=== PATIENT | female | born 1995 | race Caucasian/White ===

== ENCOUNTER 2016-11-23 23:00 | Emergency (ER) | payer OTHER ==
[2016-11-23] MEDS ORDERED: ONDANSETRON 4 MG/2 ML VIAL ONE (23:13)
[2016-11-23] MEDS ORDERED: HYDROmorphONE/DILAUDID 1 MG/ML SYR IVP ONE (23:21)
[2016-11-23] MEDS ORDERED: ONDANSETRON 4 MG/2 ML VIAL IVP ONE (23:21)
[2016-11-23] MEDS ORDERED: NS 500 ML IV ONE (23:31)
[2016-11-24] MEDS ORDERED: HYDROmorphONE/DILAUDID 1 MG/ML SYR IVP ONE ×3 (00:06→01:28)
[2016-11-24] MEDS ORDERED: KETOROLAC 30 MG/1 ML SDV IVP ONE (00:06)
--- NOTE | 2016-11-24 00:06 | EDPHY ---
HPI/HX/ROS/PE/MDM Narrative: Chief complaint: Pelvic pain HPI: Patient is presenting with worsening pelvic pain since this afternoon. Patient states that about 3 o'clock this afternoon she [facility] Since that time she has had worsening crampy low pelvic pain. Did have mild spotting having passed 1 blood clot. Took some ibuprofen, last at 7 o'clock without relief. No nausea or vomiting. No diarrhea. No fevers or chills. Does not have similar symptoms in the past. States that feels like a very severe menstrual cramp. ROS: 10 point Review of Systems is negative except as noted in the HPI. Physical exam: Gen: Awake, Alert, No Distress HEENT: Ears: Bilateral TMs are normal, no erythema or bulging. External auditory canals are clear. Nose: no rhinorrhea Eyes: PERRLA, EOMI Mouth: Moist mucosa Neck: Supple, no JVD Chest: nontender, lungs clear to auscultation Heart: S1, S2 normal, no murmur Abd: Soft, non-tender, suprapubic tenderness with guarding Back: no CVA tenderness, no midline tenderness Ext: no edema, non-tender Skin: no rash Neuro: CN II-XII intact, Sensation grossly intact, Strength 5/5 in bilateral upper and lower extremities ED Course: Pelvic ultrasound interpreted by Dr. Addison. IUD slightly low with lower tip in the LUE S, and upper tip approximately nightly 11 mm from the fundal endometrium. Additionally, the right side arm has not deployed and the left side arm has deployed but is slightly obliqued. I have discussed with KEOYNNA LegerGYRobert. She is suggesting that if on pelvic exam I am able to visualize the strings that I should remove the IUD. Not, the patient should follow up in the clinic tomorrow for IUD removal. Patient then can be arranged to have an IV placed under ultrasound guidance. IUD was removed by me successfully under pelvic exam. On examination the strings were visualized from the cervical os. Using Hugo forceps gentle pressure was applied and the IUD easily slipped through the cervical os. There was no bleeding or complications. Patient will be discharged with follow up with the for follow-up. - Data Points Medications Given: Discontinued Medications Hydromorphone HCl (Dilaudid) 0.5 mg IVP EDNOW ONE Stop: 11/23/16 23:22 Last Admin: 11/23/16 23:32 Dose: 0.5 mg Hydromorphone HCl (Dilaudid) 0.5 mg IVP EDNOW ONE Stop: 11/24/16 00:07 Last Admin: 11/24/16 00:14 Dose: 0.5 mg Hydromorphone HCl (Dilaudid) 1 mg IVP EDNOW ONE Stop: 11/24/16 01:15 Last Admin: 11/24/16 01:18 Dose: 0.5 mg Hydromorphone HCl (Dilaudid) 1 mg IVP EDNOW ONE Stop: 11/24/16 01:29 Last Admin: 11/24/16 01:31 Dose: Not Given Sodium Chloride (Ns) 500 mls @ 0 mls/hr IV EDNOW ONE PRN Reason: Wide Open Stop: 11/23/16 23:32 Last Admin: 11/23/16 23:32 Dose: 500 mls Sodium Chloride (Ns) 1,000 mls @ 0 mls/hr IV ONCE ONE PRN Reason: Wide Open Stop: 11/24/16 01:30 Last Admin: 11/24/16 01:00 Dose: 1,000 mls Ketorolac Tromethamine (Toradol) 30 mg IVP EDNOW ONE Stop: 11/24/16 00:07 Last Admin: 11/24/16 00:15 Dose: 30 mg Ondansetron HCl (Zofran) 4 mg IVP EDNOW ONE Stop: 11/23/16 23:22 Last Admin: 11/23/16 23:32 Dose: 4 mg General Time Seen by Provider: 11/23/16 23:47 Initial Vital Signs: Initial Vital Signs Temperature (C) 36.5 C 11/23/16 23:06 Heart Rate 79 11/23/16 23:06 Respiratory Rate 18 11/23/16 23:06 Blood Pressure 124/83 H 11/23/16 23:06 O2 Sat (%) 98 11/23/16 23:06 O2 Delivery Mode Room Air O2 (L/minute) 2 Allergies/Adverse Reactions: Penicillins Allergy (Verified 11/23/16 23:06) Home Medications: Medication Instructions Recorded Copper 11/23/16 Departure - Departure Disposition: Home, Routine, Self-Care Clinical Impression: IUD complication Condition: Good Instructions: Pelvic Pain (ED) Additional Instructions: Follow up with who can arrange to have an IUD placed under ultrasound guidance in their office. Return for worsening pain, fevers, chills, or any other concerns. Referrals: [facility] [Other] - As per Instructions Kandy Hill DO [Doctor of Osteopathy] - As per Instructions
[2016-11-24] MEDS ORDERED: HYDROmorphONE/DILAUDID 1 MG/ML SYR ONE (00:51)
[2016-11-24] MEDS ORDERED: NS 1,000 ML IV ONE (01:29)
[2016-11-24] MEDS ORDERED: ACETAMINOPHEN 500 MG TAB ONE (02:14)
[2016-11-24] MEDS ORDERED: ACETAMINOPHEN 500 MG TAB PO ONE (02:15)
[2016-11-24] MEDS ORDERED: ONDANSETRON 4MG PREPACK#2 BTL TAKEHOME ONE ×2 (02:39→02:44)
[2016-11-24 02:54] VITALS: RESP 16; O2SAT 96
[2016-11-24 02:55] VITALS: BP 117/67; PULSE 81; TEMP 98.1
== END 2016-11-24 02:55 | disposition home or self-care (01) ==
DX: T83.39XA Other mechanical complication of intrauterine contraceptive device, initial encounter (principal); Y76.2 Prosthetic and other implants, materials and accessory obstetric and gynecological devices associated with adverse incidents
CPT/HCPCS: 96374; J1170; J1885; J2405

== ENCOUNTER 2017-01-15 11:44 | Emergency (ER) | payer OTHER ==
[2017-01-15 11:52] VITALS: BP 116/77; PULSE 72; RESP 15; TEMP 99; O2SAT 97
[2017-01-15] MEDS ORDERED: IBUPROFEN 600 MG TAB PO ONE (12:20)
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
== END 2017-01-15 13:15 | disposition home or self-care (01) ==
LOC: CED 11:44
PROC: 2W3EX1Z Immobilization of Right Hand using Splint (ICD-10-PCS; principal; 2017-01-15)
DX: S62.356A Nondisplaced fracture of shaft of fifth metacarpal bone, right hand, initial encounter for closed fracture (principal); Y93.55 Activity, bike riding; V18.0XXA Pedal cycle driver injured in noncollision transport accident in nontraffic accident, initial encounter
CPT/HCPCS: 73130-PO; 99203-PO; G0463-PO

== ENCOUNTER 2017-09-15 08:55 | Emergency (ER) | payer OTHER ==
[2017-09-15 09:06] VITALS: TEMP 97.8
[2017-09-15] MEDS ORDERED: NS 1,000 ML IV ONE (09:29)
[2017-09-15] MEDS ORDERED: ONDANSETRON 4 MG/2 ML VIAL IVP ONE (09:29)
[2017-09-15 09:45] LABS: % IMMATURE GRANULYOCYTES 0.5 % (0.0-1.1); ABSOLUTE IMMATURE GRANULOCYTES 0.07 10^3/uL (0.00-0.10); ADD DIFF? NO; ADD MORPH? NO; ADD SCAN? NO; ATYPICAL LYMPHOCYTE FLAG 10 (0-99); FRAGMENT RBC FLAG 0 (0-99); HEMATOCRIT 44.5 % (38.0-47.0); HEMOGLOBIN 15.9 g/dL (12.6-16.3); LEFT SHIFT FLG 0 (0-99); LIPEMIA HEMOLYSIS FLAG 90 (0-99); MEAN CELL HEMOGLOBIN 33.8 pg (27.9-34.1); MEAN CELL HEMOGLOBIN CONCENTR. 35.7 g/dL (32.4-36.7); MEAN CELL VOLUME 94.5 fL (81.5-99.8); MEAN PLATELET VOLUME 9.1 fL (8.7-11.7); PLATELET CLUMPS FLAG 0 (0-99); PLATELET COUNT 166 10^3/uL (150-400); RED BLOOD CELL COUNT 4.71 10^6/uL (4.18-5.33); RED CELL DISTRIBUTION WIDTH 11.7 % (11.5-15.2)
[2017-09-15 09:54] LABS: ALANINE AMINOTRANSFERASE 39 IU/L (9-52); ALBUMIN 4.6 g/dL (3.5-5.0); ALKALINE PHOSPHATASE 71 IU/L (38-126); ANION GAP 19 mEq/L (8-16); ASPARTATE AMINOTRANSFERASE 23 IU/L (14-46); BILIRUBIN,TOTAL 0.7 mg/dL (0.1-1.4); BILIRUBIN-CONJUGATED 0.2 mg/dL (0.0-0.5); BILIRUBIN-UNCONJUGATED 0.5 mg/dL (0.0-1.1); CALCIUM 9.6 mg/dL (8.5-10.4); CARBON DIOXIDE 19 mEq/l (22-31); CHLORIDE 105 mEq/L (97-110); CREATININE 0.7 mg/dL (0.6-1.0); GLOMERULAR FILTRATION RATE > 60; GLUCOSE 98 mg/dL (70-100); POTASSIUM 3.6 mEq/L (3.5-5.2); SODIUM 143 mEq/L (134-144); TOTAL PROTEIN 7.8 g/dL (6.3-8.2)
--- NOTE | 2017-09-15 10:07 | EDPHY ---
General Narrative: CHIEF COMPLAINT: Diarrhea, dehydration, cramping HISTORY OF PRESENT ILLNESS: Patient complains of nausea, vomiting, diarrhea, pelvic cramping and vaginal bleeding. She underwent an elective on Monday and Monday with Cytotec. She is approximately 9 and half weeks gestation. She had the expected diarrhea from this for 1-2 days that went away. And then over the past 24 hr she has had significant vomiting and diarrhea. She has had increasing pelvic cramping. She has had vaginal bleeding every time she sits down to have a bowel movement. No fever. No chest pain. No shortness of breath. No headache. She has not yet been evaluated by OB physician following the commencement of the Cytotec. No recent travel or surgery. No other associated complaints or modifying factors REVIEW OF SYSTEMS: Ten systems reviewed and are negative unless otherwise noted in the HPI PCP: Tiffanie Mancilla SPECIALISTS: [facility] PAST MEDICAL HISTORY: None PAST SURGICAL HISTORY: None SOCIAL HISTORY: Nonsmoker. Occasional alcohol. No drug use. Currently student [employer]. Originally from [place] FAMILY HISTORY: Noncontributory EXAMINATION General Appearance: Alert, no distress Head: normocephalic, atraumatic Eyes: Pupils equal and round, no conjunctival pallor or injection ENT, Mouth: Mucous membranes dry. Airway is patent. Neck: Normal inspection, supple, non-tender Respiratory: Lungs are clear to auscultation. No wheezing, rhonchi or crackles Cardiovascular: Tachycardic rate. Regular rhythm. No murmur Gastrointestinal: Abdomen is soft and nondistended. There is tenderness in the lower quadrants and suprapubic region. No guarding. No tympany. No rigidity. No CVA tenderness. Neurological: A&O, nonfocal, strength is symmetric in the limbs. Skin: Warm and dry, no rash no petechiae or purpura Extremities: Nontender, no pedal edema Psychiatric: Mood and affect normal DIFFERENTIAL DIAGNOSES: Including but not limited to retained products of conception, incomplete , dehydration, infectious diarrhea, colitis, enteritis MDM: 9:40 a.m. Nausea, vomiting, diarrhea, cramping and vaginal bleeding. Patient underwent an elective by Cytotec on Monday and Monday. Diarrhea was present but resolved until today. She feels very dehydrated and weak. She has no chest pain or shortness of breath. I have ordered ultrasound of the pelvis to rule out retained products of conceptions. I have ordered laboratory studies, Rh type, IV fluid and Zofran. She is in no acute distress. 10:30 a.m. CBC does not reveal any anemia, rather she is hemoconcentrated. Chemistries unremarkable. HCG quant is 3135, down from 18,300 on August 18 11:30 a.m. Rh positive. Ultrasound pending. She is having some cramps, thus we are trying Toradol. She is in no acute distress. No vomiting. Bowel movement has been obtained and will be sent to laboratory study for GI pathogen panel. 11:50 a.m. Case discussed with radiologist Dr. James. Ultrasound does not reveal any evidence of retained products of conception. 11:55 a.m. Patient re-evaluated. She is starting to feel better after the IV fluid and Toradol. Cramps are manageable. GI pathogen panel is pending. I will consult obstetrics to confirm that her quantitative HCG is at an acceptable level. 12:15 p.m. Case discussed with Ob physician Dr. Breaux. She confirms that the HCG quantitative level is not of concern. Within normal ultrasound she does not recommend following the quantitative level. 12:20 p.m. Patient re-evaluated. She is comfortable going home at this time. I do feel she is stable for discharge. She will be discharged home with nausea medication , pain medication and strict ED precautions. I would like her to return to the emergency department in 24 hr if no improvement. I would like her to return sooner if worsening. Her GI pathogen panel is pending I will call her with results when they are available. [facility] 4:00 p.m. This is an addendum. The patient had been discharged home when her gastro pathogen panel returned. It was positive for norovirus. I have contacted the patient and notified her. I discussed further precautions regarding possible dehydration. Like her to return to the ER tomorrow should she not be able to keep any liquids down for the next 12 hr. I would like her to return sooner should she have any worsening abdominal pain, fever or bloody stools. She voiced her understanding of this. 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 SUPERVISION: Patient was independently examined, but I discussed the case with my secondary supervising physician Dr. Izaguirre - Diagnostics Imaging Results: Imaging Impressions Obstetrics Ultrasound 09/15/17 09:39 Impression: 1. Mild thickening of the endometrial stripe without evidence of internal color flow enhancement to suggest retained products of conception. This could just represent blood products. Continued follow-up suggested. 2. Retroflexed uterus. 3. Normal-appearing ovaries. Findings discussed with Lonnie Fonseca PAC at 11:57 hour, 09/15/2017. - History Smoking Status: Never smoked - Objective Vital Signs: Initial Vital Signs Temperature (C) 97.8 F 09/15/17 08:56 Heart Rate 110 H 09/15/17 08:56 Respiratory Rate 15 09/15/17 08:56 Blood Pressure 102/73 09/15/17 08:56 O2 Sat (%) 99 09/15/17 08:56 O2 Delivery Mode Room Air Allergies/Adverse Reactions: Penicillins Allergy (Verified 11/23/16 23:06) Home Medications: Medication Instructions Recorded Hydrocodone/APAP 5/325 [[place] 1 - 2 tab PO Q4H PRN #11 tab 09/15/17 5/325 (*)] Ondansetron Odt [Zofran Odt 4 mg 4 mg PO Q6 PRN #12 tab 09/15/17 (*)] Laboratory Results: Laboratory Results 09/15/17 09:20 09/15/17 09:20 09/15/17 09/15/17 09/15/17 09:20 09:20 09:20 WBC 15.40 10^3/uL H 10^3/uL (3.80-9.50) RBC 4.71 10^6/uL 10^6/uL (4.18-5.33) Hgb 15.9 g/dL g/dL (12.6-16.3) Hct 44.5 % % (38.0-47.0) MCV 94.5 fL fL (81.5-99.8) MCH 33.8 pg pg (27.9-34.1) MCHC 35.7 g/dL g/dL (32.4-36.7) RDW 11.7 % % (11.5-15.2) Plt Count 166 10^3/uL 10^3/uL (150-400) MPV 9.1 fL fL (8.7-11.7) Neut % (Auto) 93.4 % H % (39.3-74.2) Lymph % (Auto) 1.8 % L % (15.0-45.0) Rush % (Auto) 3.8 % L % (4.5-13.0) Eos % (Auto) 0.2 % L % (0.6-7.6) Baso % (Auto) 0.3 % % (0.3-1.7) Nucleat RBC Rel Count 0.0 % % (0.0-0.2) Absolute Neuts (auto) 14.41 10^3/uL H 10^3/uL (1.70-6.50) Absolute Lymphs (auto) 0.27 10^3/uL L 10^3/uL (1.00-3.00) Absolute Monos (auto) 0.58 10^3/uL 10^3/uL (0.30-0.80) Absolute Eos (auto) 0.03 10^3/uL 10^3/uL (0.03-0.40) Absolute Basos (auto) 0.04 10^3/uL 10^3/uL (0.02-0.10) Absolute Nucleated RBC 0.00 10^3/uL 10^3/uL (0-0.01) Immature Gran % 0.5 % % (0.0-1.1) Immature Gran # 0.07 10^3/uL 10^3/uL (0.00-0.10) Sodium 143 mEq/L mEq/L (134-144) Potassium 3.6 mEq/L mEq/L (3.5-5.2) Chloride 105 mEq/L mEq/L (97-110) Carbon Dioxide 19 mEq/l L mEq/l (22-31) Anion Gap 19 mEq/L H mEq/L (8-16) BUN 14 mg/dL mg/dL (7-23) Creatinine 0.7 mg/dL mg/dL (0.6-1.0) Estimated GFR > 60 Glucose 98 mg/dL mg/dL (70-100) Calcium 9.6 mg/dL mg/dL (8.5-10.4) Total Bilirubin 0.7 mg/dL mg/dL (0.1-1.4) Conjugated Bilirubin 0.2 mg/dL mg/dL (0.0-0.5) Unconjugated Bilirubin 0.5 mg/dL mg/dL (0.0-1.1) AST 23 IU/L IU/L (14-46) ALT 39 IU/L IU/L (9-52) Alkaline Phosphatase 71 IU/L IU/L (38-126) Total Protein 7.8 g/dL g/dL (6.3-8.2) Albumin 4.6 g/dL g/dL (3.5-5.0) Lipase 67 IU/L IU/L (23-300) Beta HCG, Quant 3135.60 mIU/mL H mIU/mL (0.00-4.83) Patient ABO/Rh O POSITIVE Microbiology Results: MICROBIOLOGY 09/15/17 11:36 Stool Gastrointestinal Tract Panel (PCR) - Final Norovirus Gi/Gii Medications Given: Discontinued Medications Sodium Chloride (Ns) 1,000 mls @ 0 mls/hr IV ONCE ONE PRN Reason: Wide Open Stop: 09/15/17 09:30 Last Admin: 09/15/17 09:49 Dose: 1,000 mls Ketorolac Tromethamine (Toradol) 30 mg IVP EDNOW ONE Stop: 09/15/17 11:16 Last Admin: 09/15/17 11:20 Dose: 30 mg Ondansetron HCl (Zofran) 4 mg IVP EDNOW ONE Stop: 09/15/17 09:30 Last Admin: 09/15/17 09:50 Dose: 4 mg Departure - Departure Disposition: Home, Routine, Self-Care Clinical Impression: in first trimester, Norovirus Diarrhea Qualifiers: Diarrhea type: unspecified type Qualified Code(s): R19.7 - Diarrhea, unspecified Nausea & vomiting Qualifiers: Vomiting type: unspecified Vomiting Intractability: non-intractable Qualified Code(s): R11.2 - Nausea with vomiting, unspecified Condition: Good Instructions: Dehydration (ED), Acute Diarrhea (ED) Additional Instructions: 1. Increase her fluid intake 2. Clear liquid diet, advancing slowly as tolerated 3. Medications as prescribed as needed 4. ED precautions for worsening pain, fever, vomiting or vaginal bleeding greater than 1 pad per hour 5. Return to emergency department if no improvement of her symptoms in the next 4 hr 6. [facility] [Clinic] - As per Instructions Stand Alone Forms: School Excuse Prescriptions: Hydrocodone/APAP 5/325 [[place] 5/325 (*)] 1 - 2 tab PO Q4H PRN #11 tab PRN Reason: Pain, Moderate Ondansetron Odt [Zofran Odt 4 mg (*)] 4 mg PO Q6 PRN #12 tab PRN Reason: Nausea/Vomiting, Use 1st
[2017-09-15] MEDS ORDERED: KETOROLAC 30 MG/1 ML SDV IVP ONE (11:15)
[2017-09-15 12:35] VITALS: BP 115/85; PULSE 85; RESP 18; O2SAT 96
== END 2017-09-15 12:32 | disposition home or self-care (01) ==
DX: R19.7 Diarrhea, unspecified (principal); R11.2 Nausea with vomiting, unspecified; Z87.59 Personal history of other complications of pregnancy, childbirth and the puerperium
CPT/HCPCS: 96374; J1885; J2405

== ENCOUNTER 2018-05-02 20:31 | Emergency (ER) | payer OTHER ==
--- NOTE | 2018-05-02 20:49 | EDPHY ---
H & P Time Seen by Provider: 05/02/18 20:46 HPI/ROS: HPI: This is a 22-year-old female who presents with Chief Complaint: Pt reports concussion one month ago, continuing SANTIAGO, nausea. Location: Right jewish in front of head Quality: Aching Duration: 1 month Signs and Symptoms: no fever, + nausea, + vomiting, no photophobia, no noise sensitivity, no neck stiffness, no ear pain, no tinnitus, no nasal congestion, no sinus pressure, no weakness, no radiation, no aura Timing: Daily Severity: Mild Context: Patient reports that she was playing [employer] approximately 1 month ago when she took a shoulder to her right jewish and cheek. She denies any loss of consciousness, dizziness, nausea, vomiting, global amnesia at the time. She reports that it hurts to but pain quickly wore off and she continued to play the game. 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 She reports that since that time she has had continuing headaches that are dull and aching in the right jewish in front of her head. Today she felt more nauseous and usual and actually vomited her stomach contents x1. She denies any fever, abdominal pain, urinary symptoms, diarrhea. She is taking Zofran as needed per her primary care provider. Her primary care provider ordered Head CT scan today but for some scheduling conflicts she was unable to obtain so she came to the emergency room to have the head CT scan performed. She denies any visual changes, weakness, radiation. Incidentally she is on day 3 of 7 Macrobid for urinary tract infection Modifying Factors: Zofran Comment: ROS: see HPI Constitutional: No fever, no chills, no weight loss Eyes: No blurred vision Respiratory: No shortness of breath, no cough Cardiovascular: No chest pain, no palpitations Gastrointestinal: + nausea, + vomiting, no diarrhea, no hematemesis, no blood in stool Genitourinary: No dysuria, no blood in urine Extremities: No myalgias, no edema Neurologic: No weakness, no numbness Skin: No rashes, no petechiae Hematologic: No bruising, no bleeding MEDICAL/SURGICAL/SOCIAL HISTORY: Medical history: Generally healthy. Does not take any regular medications. Surgical history: Denies Social history: Employed. Family history noncontributory. CONSTITUTIONAL: Extremely well-appearing young adult white female, significant other at bedside, awake and alert, no obvious distress HEENT: Atraumatic and normocephalic, PERRL, EOMI. Nares patent; no rhinorrhea; no nasal mucosal edema. Tympanic membranes clear. Oropharynx clear, no exudate and moist pink mucosa. Airway patent. No lymphadenopathy. No meningismus. Cardiovascular: Normal S1/S2, regular rate, regular rhythm, without murmur rub or gallop. PULMONARY/CHEST: Symmetrical and nontender. Clear to auscultation bilaterally. Good air movement. No accessory muscle usage. ABDOMEN: Soft, nondistended, nontender, no rebound, no guarding, no peritoneal signs, no masses or organomegaly. No CVAT. EXTREMITIES: 2/2 pulses, strength 5/5, no deformities, no clubbing, no cyanosis or edema. NEUROLOGICAL: no focal neuro deficits. GCS 15. Cranial nerves 2-12 grossly intact. Normal [id number] test. Normal [id number] test. Normal cerebellar testing. Speech is normal. SKIN: Warm and dry, no erythema. no rash. Good capillary refill. Source: Patient Exam Limitations: No limitations - Personal History LMP (Females 10-55): 15-21 Days Ago Current Tetanus/Diphtheria Vaccine: Yes Current Tetanus Diphtheria and Acellular Pertussis (TDAP): Yes - Medical/Surgical History Hx Asthma: No Hx Chronic Respiratory Disease: No Hx Diabetes: No Hx Cardiac Disease: No Hx Renal Disease: No Hx Cirrhosis: No Hx Alcoholism: No Hx HIV/AIDS: No Hx Splenectomy or Spleen Trauma: No Other PMH: denies - Social History Smoking Status: Never smoked Constitutional: Initial Vital Signs Temperature (C) 36.9 C 05/02/18 20:34 Heart Rate 60 05/02/18 20:34 Respiratory Rate 16 05/02/18 20:34 Blood Pressure 98/59 L 05/02/18 20:34 O2 Sat (%) 98 05/02/18 20:34 O2 Delivery Mode Room Air Allergies/Adverse Reactions: Penicillins Allergy (Verified 11/23/16 23:06) Home Medications: Medication Instructions Recorded Ondansetron Odt [Zofran Odt 4 mg 4 mg PO Q6 PRN #12 tab 09/15/17 (*)] Codeine/Butalbital/ASA/Caffein 1 - 2 each PO Q6 PRN #12 capsule 05/02/18 [Fiorinal with Codeine #3 Cap] Macrobid 05/02/18 Ondansetron Odt [Zofran Odt 4 mg 4 mg PO Q4 PRN #12 tab 05/02/18 (*)] Medical Decision Making - Diagnostics Imaging Results: Imaging Impressions Head CT 05/02/18 20:46 Impression: Negative noncontrast CT of the head with no intracranial posttraumatic sequela identified. Results called and discussed with Olinda GONZALEZ on 05/02/2018 at 21:17. ED Course/Re-evaluation: Vital signs reviewed and stable upon arrival. Will order head CT scan based on patient's request and PCP ordered. No LOC. No neurological deficits. I suspect that patient has postconcussion syndrome and would benefit from referral to the concussion Clinic with Dr. Dinh or Neurology. 2128: Called by Radiology who advised that his CT scan shows no acute intracranial process Patient would like a referral to primary care provider. I have also provided her with referral to the concussion Clinic and Neurology. Patient reports she only has 4 tabs of Zofran left and I have given her another prescription for this as well as Fioricet. This patient was seen under the supervision of my secondary supervising physician. I evaluated care for this patient independently. Discussed this patient with Dr. Merrill. Differential Diagnosis: Head injury including but not limited to concussion, skull fracture, intraparenchymal contusion, subarachnoid, subdural and epidural hematoma. Departure - Departure Disposition: Home, Routine, Self-Care Clinical Impression: Post-concussion headache, Postconcussion syndrome Condition: Good Instructions: Post Concussion Syndrome (ED), Chronic Post Traumatic Headache ( ED) Additional Instructions: You sustained a head injury and need to sustained concussion precautions until all symptoms have resolved. Please limit moderate to strenuous activities and avoid any contact sports until all symptoms have resolved. Please avoid eye strain reading or watching TV for long periods of time. It is beneficial to follow up with Dr. Dinh in the concussion Clinic or Neurology for postconcussion syndrome. Take Zofran 1 tab every 4 hr as needed for nausea, vomiting. Take Fioricet every 6 hr as needed for headache that is not relieved by Tylenol and/or ibuprofen. Return to the ER immediately if you have progressive headaches, neurologic deficits, gait abnormality, visual disturbance, slurred speech, or any other symptom that concerns you. Referrals: DMITRY ESPARZA [Primary Care Provider] - As per Instructions Virgen Dinh MD [Medical Doctor] - As per Instructions Long Nails DO [Medical Doctor] - As per Instructions [facility] [Outside] - As per Instructions Stand Alone Forms: Airline Excuse Prescriptions: Codeine/Butalbital/ASA/Caffein [Fiorinal with Codeine #3 Cap] 1 - 2 each PO Q6 PRN #12 capsule PRN Reason: Headache Ondansetron Odt [Zofran Odt 4 mg (*)] 4 mg PO Q4 PRN #12 tab PRN Reason: Nausea/Vomiting, Use 1st
[2018-05-02 21:39] VITALS: BP 106/67
== END 2018-05-02 21:39 | disposition home or self-care (01) ==
DX: G44.309 Post-traumatic headache, unspecified, not intractable (principal); F07.81 Postconcussional syndrome